=== PATIENT | female | born 1995 | race Two or more races ===

== ENCOUNTER 2017-10-26 19:52 | Outpatient (CLI) | payer OTHER ==
[~2017-10-26 19:52] MED LIST: PRENATAL CAPLE1 EACH PO
[2017-10-27] MEDS ORDERED: VISTARIL25 MG PO (10:38)
== END 2017-10-27 10:59 | disposition home or self-care (01) ==
LOC: OBS/DEL 19:52
DX: O60.03 Preterm labor without delivery, third trimester (principal)

== ENCOUNTER 2017-10-31 11:00 | Inpatient (IN) | payer OTHER ==
[~2017-10-31] VITALS: Ht 157.5 cm; Wt 69.4 kg
[~2017-10-31 11:00] MED LIST changes: +VISTARIL25 MG PO
== END 2017-11-09 11:01 | DRG 775 ==
LOC: OB/GYN 11-07 17:38 → LDR 11-07 17:38 → OB/GYN 11-07 20:51
PROC: 10E0XZZ Delivery of Products of Conception, External Approach (ICD-10-PCS; principal; 2017-11-07)
PROC: 0KQM0ZZ Repair Perineum Muscle, Open Approach (ICD-10-PCS; 2017-11-07)
PROC: 4A1HXCZ Monitoring of Products of Conception, Cardiac Rate, External Approach (ICD-10-PCS; 2017-11-07)
PROC: 10907ZC Drainage of Amniotic Fluid, Therapeutic from Products of Conception, Via Natural or Artificial Opening (ICD-10-PCS; 2017-11-07)
DX: O70.1 Second degree perineal laceration during delivery (principal); Z37.0 Single live birth; Z3A.38 38 weeks gestation of pregnancy; O99.820 Streptococcus B carrier state complicating pregnancy

== ENCOUNTER 2017-11-07 10:09 | Outpatient (CLI) | payer OTHER | END 2017-11-07 17:37 | disposition still patient (30) | LOC: OBS/DEL 10:09 | DX: O47.1 False labor at or after 37 completed weeks of gestation (principal) ==